=== PATIENT | male | born 1970 | race Caucasian/White ===

== ENCOUNTER 2022-06-30 11:14 | Emergency (ER) | payer OTHER ==
[~2022-06-30] VITALS: Ht 172.7 cm; Wt 95.2 kg
[~2022-06-30 11:14] MED LIST: AMOXICILLIN875 MG PO; AUGMENTIN875TAB PO; KEFLEX500 M1 PO; LORTAB 5 OR; NORCO1 TA1 PO; TAMSULOSIN0.4 MG PO; TENIVAC1 ML IM
[2022-06-30 11:34] VITALS: BP 108/68
[2022-06-30 12:11] LABS: HEMOGLOBIN 14.4 g/dl (14.0-18.0); IMMATURE GRANULOCYTES 0.1 % (0.0-5.0); MEAN CORPUSCULAR HGB 30.9 pG CALC (26.0-32.0); MEAN CORPUSCULAR HGB CONC 35.1 g/dL CAL (32.0-36.0); NEUT# 5.5 thou/uL (1.82-7.42); RED BLOOD COUNT 4.66 mill/uL (4.70-6.10); RED CELL DISTRI WIDTH 12.6 % (11.5-15.5)
[2022-06-30 12:41] LABS: ALBUMIN 4.4 g/dL (3.2-5.0); ALKALINE PHOSPHATASE 73 u/l (38-126); ANION GAP 13 (6-22 (CALC)); BUN 22 mg/dL (9-20); BUN/CREATININE RATIO 24 (12-20 (CALC)); CARBON DIOXIDE 22 mmol/l (22-30); CHLORIDE 107 mmol/l (95-108); CREATININE 0.9 mg/dL (0.7-1.3); GFR FOR AFR.AMER. > 60 ML/MIN (>=60 (CALC)); GFR OTHER RACES > 60 ML/MIN (>=60 (CALC)); POTASSIUM 3.6 mmol/l (3.5-5.1); SODIUM 138 mmol/l (137-146); TOTAL PROTEIN 7.5 g/dL (6.3-8.2)
[2022-06-30 12:42] LABS: BILIRUBIN, TOTAL 1.3 mg/dL (0.0-1.4); SGOT/AST 55 u/l (17-59)
[2022-06-30 15:09] VITALS: BP 108/68
== END 2022-06-30 15:20 | disposition home or self-care (01) | DRG 605 ==
LOC: ED 11:14
PROVIDERS: Family Medicine
DX: S20.211A Contusion of right front wall of thorax, initial encounter (principal); W11.XXXA Fall on and from ladder, initial encounter; Y92.009 Unspecified place in unspecified non-institutional (private) residence as the place of occurrence of the external cause

== ENCOUNTER 2023-10-13 13:13 | Emergency (ER) | payer OTHER ==
[~2023-10-13] VITALS: Ht 172.7 cm; Wt 90.7 kg
[2023-10-13] MEDS ORDERED: AMOX/K CLAV875 M1 PO (15:56)
[2023-10-13] MEDS ORDERED: MOTRIN800 MG PO (15:56)
[2023-10-13 16:02] VITALS: BP 141/91
== END 2023-10-13 16:06 | disposition home or self-care (01) | DRG 153 ==
LOC: ED 13:13
DX: H66.92 Otitis media, unspecified, left ear (principal)